=== PATIENT | male | born 1965 | race Two or more races ===

== ENCOUNTER 2023-03-12 07:19 | Emergency (ER) | payer OTHER ==
[2023-03-12] MEDS ORDERED: Proparacaine 0.5% Ophth Soln 15 ML Bottle EYEBOTH STA (08:18)
== END 2023-03-12 09:14 | disposition other institution (70) ==
LOC: JP.ED 07:19
DX: T15.92XA Foreign body on external eye, part unspecified, left eye, initial encounter (principal); I10 Essential (primary) hypertension; F17.210 Nicotine dependence, cigarettes, uncomplicated; Z88.0 Allergy status to penicillin; Z79.899 Other long term (current) drug therapy
CPT/HCPCS: 99283; A9270

== ENCOUNTER 2025-02-06 15:17 | Emergency (ER) | payer SELFPAY ==
[2025-02-06 16:10] LABS: BASOPHILS ABSOLUTE AUTO 0.03 K/uL (0.00-0.10); BASOPHILS PERCENT AUTO 0.4 % (0.1-1.3); EOSINOPHILS ABSOLUTE AUTO 0.14 K/uL (0.00-0.40); HEMOGLOBIN 16.4 g/dL (12.9-16.9); IMMATURE GRAN ABSOLUTE AUTO 0.02 K/uL (0.00-0.23); IMMATURE GRAN PERCENT AUTO 0.3 % (0.0-0.7); LYMPHOCYTES ABSOLUTE AUTO 1.49 K/uL (0.8-3.3); LYMPHOCYTES PERCENT AUTO 20.8 % (11.4-47.7); MEAN CORPUSCULAR HEMOGLOBIN 31.5 pg (31.6-35.5); MEAN CORPUSCULAR HGB CONC 34.2 g/dL (31.6-35.5); MEAN CORPUSCULAR VOLUME 92.3 fL (81.4-99.0); MONOCYTES ABSOLUTE AUTO 0.62 K/uL (0.20-0.90); MONOCYTES PERCENT AUTO 8.7 % (3.3-12.6); NEUTROPHILS ABSOLUTE AUTO 4.86 K/uL (1.0-7.6); NEUTROPHILS PERCENT AUTO 67.8 % (40.0-78.1); PLATELET COUNT,PLT 201 K/uL (130-375); WHITE BLOOD CELL COUNT,WBC 7.2 K/uL (3.2-11.0)
[2025-02-06 16:23] LABS: ALANINE AMINOTRANSFERASE,ALT 40 U/L (12-78); ALKALINE PHOSPHATASE 126 U/L (46-116); ASPARTATE AMNIOTRANSFERASE,AST 31 U/L (15-37); BILIRUBIN TOTAL 0.7 mg/dL (0.2-1.0); BLOOD UREA NITROGEN,BUN 17 mg/dL (7-18); CALCIUM 9.5 mg/dL (8.5-10.1); CARBON DIOXIDE,CO2 28 mmol/L (21-32); CHLORIDE,CL 101 mmol/L (100-108); CREATININE 0.8 mg/dL (0.8-1.3); EST CRCL DRUG DOSING (CG) 88.61 mL/min; ESTIMATED GFR 101 mL/min (>60); GLUCOSE RANDOM 106 mg/dL (74-106); POTASSIUM,K 3.2 mmol/L (3.6-5.2); SODIUM,NA 138 mmol/L (140-148); TROPONIN I HIGH SENSITIVITY 36.3 pg/mL (<=60.3)
[2025-02-06 16:28] LABS: ANION GAP 12.2 mmol/L (5.0-14.0)
[2025-02-06] MEDS: Labetalol 20 MG/4 ML Syringe IVPUSH ONE (16:40)
[2025-02-06] MEDS: amLODIPine 5 MG Tab PO ONE (18:20)
[2025-02-06] MEDS: Lisinopril 20 MG Tab PO ONE (18:20)
[2025-02-06] MEDS: Lisinopril 20 MG Tab ONE (18:20)
[2025-02-06 18:32] LABS: LYME AB IgG Negative (Negative)
[2025-02-06 18:33] LABS: LYME AB IgM Negative (Negative)
== END 2025-02-06 18:29 | disposition left against medical advice (07) ==
LOC: JP.ED 15:17
DX: I10 Essential (primary) hypertension (principal); R53.1 Weakness; F17.210 Nicotine dependence, cigarettes, uncomplicated; Z88.0 Allergy status to penicillin
CPT/HCPCS: 36415; 70450; 80053; 84484; 85025; 86618; 96374; 99285; A9270; J1920